=== PATIENT | female | born 1960 | race Caucasian/White ===

== ENCOUNTER → 2018-05-28 | Outpatient (CLI) | payer OTHER ==
[~2018-05-28] MED LIST: CIPROFLOXACIN500 M1 PO; CLONAZEPAM 1 MG1 M1 PO; ERYTHROMYCIN E3.5 G2 OP; FISH OIL 1,0001 EAC9; FLAGYL500 MG PO; NAPROSYN375 MG PO; NORCO 5-325 TA1 EACH PO
== END ==
LOC: M.LAB 13:13
DX: I10 Essential (primary) hypertension (principal); E78.5 Hyperlipidemia, unspecified; K21.9 Gastro-esophageal reflux disease without esophagitis; R73.09 Other abnormal glucose; E55.9 Vitamin D deficiency, unspecified; R35.1 Nocturia; R53.83 Other fatigue

== ENCOUNTER → 2019-08-14 | Outpatient (CLI) | payer OTHER | LOC: M.RAD 10:13 | DX: Z12.31 Encounter for screening mammogram for malignant neoplasm of breast (principal) ==

== ENCOUNTER → 2020-10-22 | Outpatient (CLI) | payer OTHER | LOC: M.RAD 14:42 | PROVIDERS: ATTEND Family Medicine | DX: Z12.31 Encounter for screening mammogram for malignant neoplasm of breast (principal); Z13.820 Encounter for screening for osteoporosis; M85.88 Other specified disorders of bone density and structure, other site ==